=== PATIENT | female | born 1985 | race African-American/Black ===

== ENCOUNTER 2017-04-05 09:07 | Emergency (ER) | payer OTHER ==
--- NOTE | ~2017-04-05 | CR58 ---
[facility] A Service of [facility] RADIOLOGY TEXT RESULTS PATIENT: ZACKARY RIOS LOCATION: [facility] : 85 UNIT #: [id number] AGE: [address]: Tyler Ordonez MD SEX: F ORDER DR: [id number] [id number] [facility]. [place], [place] [address] [id number] E MR#: [id number] Acc #: [id number] NAME: ZACKARY RIOS : 1985 SEX: F STUDY DATE/TIME: 04/05/2017 1108 UNIT: [facility] ROOM: STUDY DESCRIPTION: CR Cervical Spine 2 or 3 Views Attending Physician: Tyler Ordonez M.D. Ordering Physician: Tyler Ordonez M.D. MEDICAL IMAGING REPORT This report is preliminary unless electronic signature is present REVISED REPORT EXAM Cervical spine series, 04/05/2017, 1108 hours. CLINICAL HISTORY 31-year-old woman with a 3-day history of neck pain radiating into shoulders. No reported injury. COMPARISON None FINDINGS AP, lateral, open-mouth and swimmer's views are performed. The AP view is normal. The open-mouth view is normal. Lateral view demonstrates straightening of the cervical spine and some loss of the cervical lordosis. There is no disc height loss or subluxation. Swimmer's view includes the C7-T1 level. Alignment is normal. IMPRESSION There is straightening of the cervical spine and some reversal of the normal cervical lordosis. No vertebral body or disc height loss. No subluxation. *pcp removed* Dictated by... Amisha Babin M.D. THIS IS AN ELECTRONICALLY VERIFIED REPORT Amisha Babin M.D. at 04/25/2017 9:30 AM SMM/tmw [facility] A Service of [facility] RADIOLOGY TEXT RESULTS PATIENT: ZACKARY RIOS LOCATION: [facility] : 85 UNIT #: [id number] AGE: [address]: Tyler Ordonez MD SEX: F ORDER DR: TD: 04/05/2017 12:52 JOB #: [id number] CC: Joyce/diane Please Delete MEDICAL IMAGING REPORT Page 1 of 1 COPY
[~2017-04-05 09:07] MED LIST: AMOXICILLIN500 M1 PO; ATENOLOL; ATENOLOL PO; HYDROCHLOROTHIA25 MG PO; LISINOPRIL PO; LISINOPRIL10 MG PO; LISINOPRIL20 MG PO; NORVASC PO; VIGAMOX3 M1 OP
== END 2017-04-05 12:27 | disposition home or self-care (01) ==
LOC: CED 09:07
DX: M54.12 Radiculopathy, cervical region (principal); I10 Essential (primary) hypertension; Z90.49 Acquired absence of other specified parts of digestive tract
CPT/HCPCS: 72040; 84703; 96372; 99283; J1885

== ENCOUNTER 2017-05-12 14:46 | Emergency (ER) | payer OTHER ==
--- NOTE | ~2017-05-12 | EKG ---
PATIENT: ZACKARY RIOS UNIT #: [id number] Ventricular Rate: 65 BPM Atrial Rate: 65 BPM P-R Interval: 184 ms QRS Duration: 102 ms Q-T Interval: 412 ms QTC Calculation(Bezet): 428 ms P [place]: 33 degrees Calculated R [place]: -34 degrees Calculated T [place]: -40 degrees Diagnosis Line: Normal sinus rhythm Diagnosis Line: Left axis deviation Diagnosis Line: Nonspecific T wave abnormality Diagnosis Line: Abnormal ECG Diagnosis Line: When compared with ECG of 03-AUG-2011 11:49, Diagnosis Line: Inverted T waves have replaced nonspecific T wave Diagnosis Line: abnormality in Anterior leads Diagnosis Line: Confirmed by FIDELIA COLIN MD ([id number]) on Diagnosis Line: 05/12/2017 10:54:14 PM INTERPRETING MD: SALAS
--- NOTE | ~2017-05-12 | CR72 ---
[facility] A Service of [facility] RADIOLOGY TEXT RESULTS PATIENT: ZACKARY RIOS LOCATION: [facility] : 85 UNIT #: [id number] AGE: [address]: Johnson Hilliard MD SEX: F ORDER DR: [id number] [facility] [address] [place], [place] [address] [id number] E MR#: [id number] Acc #: [id number] NAME: ZACKARY RIOS : 1985 SEX: F STUDY DATE/TIME: 05/12/2017 16:21 UNIT: [facility] ROOM: STUDY DESCRIPTION: CR Chest Single View Portable Attending Physician: Aleksandar Hilliard M.D. Ordering Physician: Ed Doc Diane Mo Primary Care Physician: La Lopez M.D. MEDICAL IMAGING REPORT This report is preliminary unless electronic signature is present EXAM Portable chest HISTORY Chest pain, shortness of air x2 days. COMPARISON 08/02/2011 FINDINGS A single AP portable view of the chest shows both lungs to be clear. The heart is normal in size. The mediastinal contour is normal. No significant bone abnormalities are seen. IMPRESSION Normal portable chest. Dictated by... Ibrahima Zapata M.D. THIS IS AN ELECTRONICALLY VERIFIED REPORT Ibrahima Zapata M.D. at 05/12/2017 9:13 PM WILY/luisa TD: 05/12/2017 17:20 JOB #: [id number] MEDICAL IMAGING REPORT Page 1 of 1 COPY
[2017-05-12 16:06] LABS: POC - CKMB 1.2 ng/mL (0.0-7.9); POC - TROPONIN <0.05 ng/mL (<=0.05)
[2017-05-12 16:10] LABS: BASOPHIL# 0.1 X10e3 (0-0.3); BASOPHIL% 0.9 % (0-2.5); EOSINOPHIL# 0.2 X10e3 (0-0.7); EOSINOPHIL% 2.3 % (0.0-7.0); HEMATOCRIT 42.5 % (35.0-45.0); HEMOGLOBIN 13.8 gm/dL (12.0-16.0); LYMPHOCYTE% 46.8 % (17.0-45.0); MEAN CELL VOLUME 80.2 FL (83-96); MEAN CORPUSCULAR HEMOGLOBIN 26.1 PG (28-34); MEAN CORPUSCULAR HGB CONC 32.6 g/dL (30-36); MEAN PLATELET VOLUME 7.6 FL (6.5-11.5); MONOCYTE# 0.7 X10e3 (0-1.0); MONOCYTE% 10.5 % (3.0-12.0); NEUTROPHIL# 2.6 X10e3 (1.5-7.1); NEUTROPHIL% 39.5 % (40-75); PLATELET COUNT 295 X10e3 (140-420); RED CELL DISTRIBUTION WIDTH 14.5 % (11.0-15.5); WHITE BLOOD COUNT 6.5 X10e3 (4.0-10.5)
[2017-05-12 16:13] LABS: DIFF IND NO
[2017-05-12 16:27] LABS: BUN/CREATININE RATIO 6.92; CALCIUM SERUM 9.2 mg/dL (8.4-10.2); CREATININE SERUM 1.3 mg/dL (0.6-1.4); GLOM FILT RATE Estimated 62.9 mL/min (>60); POTASSIUM 3.6 mmol/L (3.5-5.1)
[2017-05-12 18:52] LABS: POC - CKMB 1.1 ng/mL (0.0-7.9); POC - TROPONIN <0.05 ng/mL (<=0.05)
== END 2017-05-12 19:45 | disposition home or self-care (01) ==
LOC: CED 14:46
PROVIDERS: Emergency Medicine
DX: M94.0 Chondrocostal junction syndrome [Tietze] (principal); I16.0 Hypertensive urgency
CPT/HCPCS: 36415; 71010; 80048; 82553; 84484; 85025; 93005; 99285